=== PATIENT | female | born 1990 | race Caucasian/White ===

== ENCOUNTER → 2019-10-30 11:09 | Outpatient (BNVA) | payer MEDICAID, SELFPAY | PROVIDERS: Family Provider Family Medicine; PCP Family Medicine; Visit Provider Obstetrics & Gynecology | DX: O26.899 Other specified pregnancy related conditions, unspecified trimester (principal); R12 Heartburn | CPT/HCPCS: 80053; 80307; 84315; 85027; 86592; 86762; 86803; 86850; 86900; 87340 ==

== ENCOUNTER → 2019-11-13 09:26 | Outpatient (BNVA) | payer MEDICAID, SELFPAY | PROVIDERS: Family Provider Family Medicine; PCP Family Medicine; Visit Provider Obstetrics & Gynecology | DX: Z34.90 Encounter for supervision of normal pregnancy, unspecified, unspecified trimester (principal) | CPT/HCPCS: 84315; 87491; 87591 ==

== ENCOUNTER → 2020-02-27 14:50 | Outpatient (BNVA) | payer MEDICAID, SELFPAY | PROVIDERS: Family Provider Family Medicine; PCP Family Medicine; Visit Provider Obstetrics & Gynecology | DX: Z34.90 Encounter for supervision of normal pregnancy, unspecified, unspecified trimester (principal) | CPT/HCPCS: 82950; 84315; 85027 ==

== ENCOUNTER → 2020-03-07 08:15 | Outpatient (BNVA) | payer MEDICAID, SELFPAY | PROVIDERS: Family Provider Family Medicine; PCP Family Medicine; Visit Provider Obstetrics & Gynecology | DX: R73.09 Other abnormal glucose (principal) | CPT/HCPCS: 82951; 82952 ==

== ENCOUNTER → 2020-04-18 08:05 | Outpatient (BNVA) | payer MEDICAID, SELFPAY | PROVIDERS: Family Provider Family Medicine; PCP Family Medicine; Visit Provider Obstetrics & Gynecology | DX: O24.419 Gestational diabetes mellitus in pregnancy, unspecified control (principal); O99.013 Anemia complicating pregnancy, third trimester; D64.9 Anemia, unspecified; Z3A.00 Weeks of gestation of pregnancy not specified | CPT/HCPCS: 84315; 85025; 87081 ==

== ENCOUNTER → 2020-04-29 15:11 | Outpatient (BNVA) | payer MEDICAID, SELFPAY | PROVIDERS: Family Provider Family Medicine; PCP Family Medicine; Visit Provider Obstetrics & Gynecology | DX: O24.419 Gestational diabetes mellitus in pregnancy, unspecified control (principal); Z20.822 Contact with and (suspected) exposure to COVID-19 | CPT/HCPCS: 84315; 87635 ==

== ENCOUNTER 2020-05-01 05:18 | Observation (INO) | payer MEDICAID, SELFPAY ==
[2020-05-01] VITALS (19 sets, daily range): BP systolic 103–134; BP diastolic 63–85; PULSE 95–131; RESP 18; TEMP 36.3; O2SAT 97–100; BMI 31.2
--- NOTE | 2020-05-01 05:30 | PC.NURSE ---
BEDSIDE ULTRASOUND. POSITION TRANSVERSE. HEAD ON MATERNAL LEFT. LEGS ON MATERNAL RIGHT. SPINE MATERNAL LOWER ABDOMEN
[2020-05-01] MEDS: lactated ringers 1,000 ML 125 ML IV (06:00)
[2020-05-01 06:04] LABS: Basophils % 0.4 %; Eosinophils # 0.1 10^3/uL (0.0-0.8); Hematocrit 33.8 % (37.0-47.0); Hemoglobin 10.8 g/dL (11.5-15.3); Lymphocytes # 2.5 10^3/uL (0.8-4.8); Mean Corpuscular Hemoglobin 26.5 pg (28.0-34.0); Mean Corpuscular Volume 82.8 fL (81-99); Mean Platelet Volume 11.8 fL (7.4-10.4); Monocytes # 0.7 10^3/uL (0.2-0.9); Monocytes % 8.3 %; Neutrophils # 4.68 10^3/uL (1.8-7.7); Neutrophils % 58.9 %; Nucleated Red Blood Cells % 0 %; Platelet Count 127 10^3/cmm (130-400); Red Blood Count 4.08 10^6/uL (4.1-5.3); White Blood Count 7.9 10^3/uL (4.0-10.0)
--- NOTE | 2020-05-01 06:59 | W.PM.OPSUD ---
Surgery/Procedure H&P Update DATE OF PROCEDURE: May 01, 2020 DATE H&P PERFORMED: 04/29/20 H&P UPDATE INFORMATION: I have reviewed H&P completed within last 30 days, I have examined patient prior to procedure and No changes to prior documentation PREOP DIAGNOSIS: malpresentation PLANNED PROCEDURE: external cephalic version
[2020-05-01] MEDS: terbutaline 1 mg/mL INJ 0.25 MG SUBCUT (07:11)
--- NOTE | 2020-05-01 07:45 | PC.NURSE ---
at bedside to perform Version, this insurance writer and Samuel BLACKWOOD to assist in version. started the version at 727 and ended at 741 with ultrasound at bedside to visualize heart rate through out procedure.
--- NOTE | 2020-05-01 17:32 | PM.ACPR ---
Procedure/Consent Procedure Narrative: OPERATIVE REPORT Date of procedure: 05/01/2020 Date of dictation: 05/01/2020 Preoperative diagnosis: Breech presentation, gestational diabetic Postoperative diagnosis/findings: Breech presentation converted to cephalic Procedure done: External cephalic version none Specimens removed/disposition of specimens:[default value] Surgeon: Dr. Tiffanie Matthews Anesthesia: None Medications: Terbutaline 0.25 subcutaneously x1 Complications: None, about an hour and a half after the procedure the baby moved from being cephalic to oblique with the head in the right lower quadrant. Plan was made for patient to follow-up with [facility] on Tuesday with the discussion that sometimes an oblique lie with convert back to cephalic and if not plan for repeat ECV. PROCEDURE: After informed consent was obtained from patient patient was placed supine on the table and ultrasound was done showing head in the left upper quadrant and breech in the right lower quadrant. Back was in the fundus of the uterus. Good movement and heartbeat were noted. tracing was reactive. Patient had been given terbutaline 10 minutes prior to the procedure and uterus was soft. The head and the breech was grasped and moving in a clockwise fashion the head was brought down towards the pelvis. This was done without too much difficulty. This was done in 2 stages with the head being brought to the left lower quadrant first and held in the position and heart rate was checked. heart rate was noted to be in the 140s on ultrasound and Doppler. Then the remainder of the procedure was completed with the head being brought down to the vertex position. Answer removed from the patient and monitoring was done. It was noted to stay steady in the cephalic presentation. Patient tolerated the procedure well without any difficulty FOLLOW UP: Follow-up on Tuesday for routine visit with [facility] MEDICATION ON DISCHARGE: Continue other home medication DISPOSITION: Home in a stable condition. Emergency room precautions reviewed and patient to contact us and come in for the slightest concern of movement bleeding leaking or contractions. This documentation was created by [employer] deep tissue massage therapist software (known for inherent deep tissue massage therapist error). Every effort was made to assure accuracy of deep tissue massage therapist. Any obvious errors or omissions should be clarified with the author of the document.
== END 2020-05-01 10:31 | disposition home or self-care (01) ==
PROVIDERS: Admitting Provider Obstetrics & Gynecology; Family Provider Family Medicine; PCP Family Medicine; Visit Provider Obstetrics & Gynecology
DX: O32.1XX0 Maternal care for breech presentation, not applicable or unspecified (principal); O24.419 Gestational diabetes mellitus in pregnancy, unspecified control; O99.013 Anemia complicating pregnancy, third trimester; Z3A.37 37 weeks gestation of pregnancy; K42.9 Umbilical hernia without obstruction or gangrene; K21.9 Gastro-esophageal reflux disease without esophagitis
CPT/HCPCS: 36415; 59025; 85025; 96372; G0378; G0379; J3105

== ENCOUNTER → 2020-05-09 11:34 | Outpatient (BNVA) | payer MEDICAID, SELFPAY | PROVIDERS: Family Provider Family Medicine; PCP Family Medicine; Visit Provider Obstetrics & Gynecology | DX: Z34.80 Encounter for supervision of other normal pregnancy, unspecified trimester (principal) | CPT/HCPCS: 87635 ==

== ENCOUNTER 2020-05-13 06:36 | Inpatient (IN) | payer MEDICAID, SELFPAY ==
[2020-05-13] VITALS (72 sets, daily range): BP systolic 99–166; BP diastolic 54–95; PULSE 78–141; RESP 18; TEMP 35.7–36.9; O2SAT 93–100; BMI 38.0
[2020-05-13] MEDS: lactated ringers 1,000 ML 999 ML IV ×2 (07:27→08:47)
[2020-05-13 07:34] LABS: Basophils % 0.4 %; Eosinophils # 0.1 10^3/uL (0.0-0.8); Hematocrit 35.1 % (37.0-47.0); Hemoglobin 11.3 g/dL (11.5-15.3); Lymphocytes # 2.6 10^3/uL (0.8-4.8); Lymphocytes % 34.9 %; Mean Corpuscular HGB Conc 32.2 g/dL (30.0-36.0); Mean Corpuscular Hemoglobin 26.7 pg (28.0-34.0); Mean Platelet Volume 11.7 fL (7.4-10.4); Monocytes # 0.6 10^3/uL (0.2-0.9); Monocytes % 8.1 %; Neutrophils # 4.03 10^3/uL (1.8-7.7); Neutrophils % 55.2 %; Nucleated Red Blood Cells % 0 %; Platelet Count 147 10^3/cmm (130-400); Red Blood Count 4.23 10^6/uL (4.1-5.3); Red Cell Distribution Width 15.9 % (12.1-15.1); White Blood Count 7.3 10^3/uL (4.0-10.0)
[2020-05-13] MEDS: oxytocin 30 UNIT/500 ML BAG IV (08:45)
[2020-05-13 08:55] LABS: Glucose Point of Care 92 mg/dL (70-110)
--- NOTE | 2020-05-13 09:25 | ANES.PREANE2 ---
Pre-Anesthetic Assessment Pre-Anesthetic Assessment: Height/Weight: Height 1.47 m Weight 82.554 kg Temp Pulse BP Pulse Ox 97.9 F 131 H 109/70 97 05/13/20 07:20 05/13/20 09:22 05/13/20 09:22 05/13/20 09:16 Preop Diagnosis: malpresentation Was Beta Marianne taken within 24 hours: N/A Was Clonidine taken within 24 hours: N/A Social: Social History: No alcohol and No tobacco Exam: Pre-Anes Outpt Exam: alert, oriented x 3, clear to auscultation bilaterally and regular rate & rhythm Airway: Submandibular: WNL Cervical ROM: WNL MP: 2 Dentition: Full CV/HEM: CV/HEM: Anemia GI: GI: GERD Metabolic: Metabolic: DM (Gestational) Anesthetic Plan: ASA status: 2 Anesthesia: Regional (specify below) (Labor epidural) Risk of > 500 ml blood loss (7ml/kg in children): No Meds/Allergies Current Medications: Current Medications Generic Name Dose Route Start Last Admin Trade Name Freq PRN Reason Stop Dose Admin Oxytocin 30 unit in 500 ml s @ 1 mls/hr 05/13/20 07:15 05/13/20 08:45 Pitocin IV 2 milliunit/min .Q24H GENESIS 2 mls/hr Administration Protocol 1 MILLIUNIT/MIN Lactated Ringer's 1,000 mls @ 999 m ls/hr 05/13/20 08:41 05/13/20 08:47 Lactated Ringers IV 999 mls/hr .Q1H1M PRN Administration See label comment s PFSH Anesthesia PFSH: Medical History Anxiety Since at least 2011. Has been on and off medication in the past. Currently asymptomatic. Does not see anyone for this. GERD (gastroesophageal reflux disease) Symptoms since at least 2013 and worse with every . Has not had an endoscopy done. Surgical History H/O dilation and curettage x 2 ---2012 after miscarriage. Done by Dr. Milligan at [facility] [place]. ----06/29/2017 for retained placenta after vaginal delivery of a missed . Done by Dr. Matthews at [facility]. Family History Father Hypertension Mother Hypertension Denies family history of Colon cancer Ovarian cancer Diabetes Heart disease Hyperlipidemia Breast cancer Uterine cancer Thyroid condition Stroke Social History Smoking and tobacco status: never smoked Alcohol intake: never Additional social history: - Data Anesthesia CBC & Chem 7: 05/13/20 07:00 Other Labs: Laboratory Results - last 48 hr 05/13/20 05/13/20 05/13/20 07:00 07:00 08:52 WBC 7.3 RBC 4.23 Hgb 11.3 L Hct 35.1 L MCV 83.0 MCH 26.7 L MCHC 32.2 RDW 15.9 H Plt Count 147 MPV 11.7 H Neut % (Auto) 55.2 Lymph % (Auto) 34.9 [place] % (Auto) 8.1 Eos % (Auto) 1.0 Baso % (Auto) 0.4 Neut # (Auto) 4.03 Lymph # (Auto) 2.6 [place] # (Auto) 0.6 Eos # (Auto) 0.1 Baso # (Auto) 0.0 Nucleated RBC % (auto) 0 Nucleated RBCs # 0.0 POC Glucose 92 Blood Type A Positive Rho(D) Type Positive / 4+ Antibody Screen Negative Cardiac Studies: No Data to Display
--- NOTE | 2020-05-13 09:26 | ANES.PROC ---
Anesthesia Procedures Procedure/Date: 05/13/20 Epidural: Time Out Performed: Yes Consents Signed: Procedure Consent Consent: requested by attending/covering physician, from patient, risks and benefits reviewed and patient agrees to proceed Lumbar Level: L3-L4 Epidural position: sitting Epidural procedure: sterile prep of area, 1% lidocaine to numb the area, 18 g needle, neg for paresthesia, test dose given, 1.5% xylocaine 1:200k epi, placed PCEA, no systemic response, sterile dressing applied and 0.2% Ropiavacaine @ mls/hr (13) Additional Comments: DENNISE at 6 cm, cath at 11cm.
[2020-05-13] MEDS: ondansetron 2 mg/ML SDV 2 mL 4 MG IVP (09:55)
[2020-05-13 11:33] LABS: Glucose Point of Care 90 mg/dL (70-110)
[2020-05-13] MEDS: dextrose 5%-lactated ringers 1,000 ML 125 ML IV (11:45)
[2020-05-13 13:34] LABS: Glucose Point of Care 93 mg/dL (70-110)
--- NOTE | 2020-05-13 15:11 | PM.DELIVERY ---
Delivery Note: Date of delivery: May 13, 2020 - PRE-DELIVERY DIAGNOSIS: 29-year-old 7 para 4-0-2-4 at 39 weeks and 3 days Possible version and induction Gestational diabetic-diet controlled GBS negative GERD/gastritis Umbilical hernia POST-DELIVERY DIAGNOSIS: Vaginal delivery on 05/13/2020 GERD/gastritis Umbilical hernia PROCEDURE: Vaginal delivery on 05/13/2020 ANESTHESIA: Epidural anesthesia DELIVERING PHYSICIAN: Tiffanie Matthews FACOG PRE-DELIVERY COURSE: Ms. Hunt is a 29-year-old 7 para 4-0-2-4 at 39 weeks and 3 days who presented to labor and delivery for scheduled procedure. Her baby was noted to be breech and had an external cephalic version that was successful at 37 weeks however baby reported to being breech at 38 weeks. Given this the plan was to be to attempt another version if baby was still breech at 39 weeks and induce if the version was successful however if unsuccessful the plan was to do a . When she presented on 05/13/2020 bedside ultrasound showed that baby was cephalic and she was noted to be rober irregularly and cervix was 4 cm 70% and -2 station. She was admitted for planned induction and started on Pitocin as her contractions spaced out. She was titrated to maximum of 14 mIU. She desired an epidural and this was placed. Artificial rupture of membranes was performed at 11 AM with clear fluid. Head was noted to be well applied. At that time she was 5 cm 70% and -2 station. She progressed and was fully dilated at 2:04 PM at +1 station and was set up in lithotomy position ready to push. tracing was overall category 1 with occasional variables and early decelerations. Fingerstick monitoring had been done throughout the labor and was at goal. DELIVERY NOTE: She was set up in lithotomy position and was pushing effectively. She was noted to be +3 station and continued pushing well. The head delivered in BRIAN position,no nuchal cord was present. The shoulders and rest of the body followed with her next push. The baby's mouth and nose were suctioned and the baby was placed on the mother's belly. Once cord pulsations stopped the cord was clamped and cut. The placenta delivered spontaneously intact with membranes and was discarded. The fundus was noted to be firm and well contracted. The vagina and cervix were inspected and no cervical or sulcal lacerations were noted. There was a first-degree vaginal laceration likely from an old tear and this was repaired for reapproximation. Good hemostasis and reapproximation was obtained. Baby boy, exact plan born at 2:41 PM on 05/13/2020 with 9/10, weighing 8 pounds 2 ounces, 3680 g, 21-1/4 inches long long. Placenta was delivered spontaneously intact with membranes at 2:53 PM. Cotyledons were intact , centrally inserted umbilical cord with 3 vessels noted. Estimated blood loss 250 mL. Complications-none, both baby and mother were left to recover in a stable condition This documentation was created by [employer] emergency room physician assistant software (known for inherent emergency room physician assistant error). Every effort was made to assure accuracy of emergency room physician assistant. Any obvious errors or omissions should be clarified with the author of the document. Coding Level of Care Code Acute Drug And Alcohol Counsellor for Jessica Fwd History History History 7 Term 5 Miscarriages/Ectopic 2 0 Living Children 5 Other History: 7 Para 5025, x 5 SABX 2 1-----> 2008, full-term vaginal delivery at 39 weeks, baby boy [Leelee], 6 lbs. 11 oz., induction at 40 weeks, [place] [facility] [place] 2---> 2011, spontaneous miscarriage at 6-7 weeks--- D&C [place] Milligan [place] [facility] [place] 3----> 2012, baby girl([facility] full-term vaginal delivery at 39 weeks, weighing 7 lbs. 14 oz., Dr. Swan. No complications. 4---> 11/06/2015, baby girl (Rober) , full-term vaginal delivery at 40 weeks and 2 days-induction of labor, weighing 7 pounds 1-1/2 ounces, first degree perineal tear, [place]. [place] [facility] [place] No complications prior to delivery. 5---> 07/2017, missed at 13 weeks, patient's labor was induced with Cytotec and she delivered on 06/29/2017, D&C was done for retained placenta. This was performed by Dr. Matthews. 6--> 09/26/2018, induction of labor at 38 weeks and [address] [place] [facility] [place] Vaginal delivery with a first-degree vaginal tear, baby girl, ([place]) weighing 6 lbs. 3 oz. 7---> 05/13/2020, induction of labor at 39 weeks and 3 days for GDM-diet controlled. [place]ag[place] [facility] [place] first-degree vaginal tear, baby boy([place]) weighing 8 pounds 2 ounces.
[2020-05-13] MEDS: benzocaine-menthol 78 gm Canister 1 SPRAY TOPICAL (18:12)
[2020-05-13] MEDS: lanolin oint 7 gm 1 APPLIC TOPICAL (18:24)
[2020-05-13] MEDS: docusate sodium 100 mg Capsule PO (18:24)
[2020-05-13] MEDS: ibuprofen 200 mg Tablet PO (20:03)
[2020-05-14] VITALS (10 sets, daily range): BP systolic 117–144; BP diastolic 76–90; PULSE 75–82; RESP 18; TEMP 35.9–36.6; O2SAT 96
[2020-05-14] MEDS: HYDROcodone-acetaminophen 5-325 mg Tablet PO (01:52)
[2020-05-14 03:23] LABS: Hematocrit 29.9 % (37.0-47.0); Hemoglobin 9.7 g/dL (11.5-15.3); Mean Corpuscular HGB Conc 32.4 g/dL (30.0-36.0); Mean Corpuscular Volume 83.3 fL (81-99); Platelet Count 130 10^3/cmm (130-400); Red Blood Count 3.59 10^6/uL (4.1-5.3); Red Cell Distribution Width 15.6 % (12.1-15.1); White Blood Count 9.3 10^3/uL (4.0-10.0)
[2020-05-14] MEDS: ibuprofen 200 mg Tablet PO ×2 (06:32→12:02)
--- NOTE | 2020-05-14 07:15 | P.DS_ITS ---
Discharge Providers Date of Admission: 05/13/20 06:36 Date of Discharge: May 14, 2020 Attending Provider at Admission: Tiffanie Meracdo MD Attending Provider at Discharge: Tiffanie Mercado MD PRE-DELIVERY DIAGNOSIS: 29-year-old 7 para 4-0-2-4 at 39 weeks and 3 days Possible version and induction for breech presentation Gestational diabetic-diet controlled GBS negative GERD/gastritis Umbilical hernia POST-DELIVERY DIAGNOSIS: Vaginal delivery on 05/13/2020 GERD/gastritis Umbilical hernia PROCEDURE: Vaginal delivery on 05/13/2020 ANESTHESIA: Epidural anesthesia DELIVERING PHYSICIAN: Tiffanie Hewitt FACOG PRE-DELIVERY COURSE: Ms. Hunt is a 29-year-old 7 para 4-0-2-4 at 39 weeks and 3 days who presented to labor and delivery for scheduled procedure. Her baby was noted to be breech and had an external cephalic version that was successful at 37 weeks however baby reported to being breech at 38 weeks. Given this the plan was to be to attempt another version if baby was still breech at 39 weeks and induce if the version was successful however if unsuccessful the plan was to do a C- section. When she presented on 05/13/2020 bedside ultrasound showed that baby was cephalic and she was noted to be rober irregularly and cervix was 4 cm 70% and -2 station. She was admitted for planned induction and started on Pitocin as her contractions spaced out. She was titrated to maximum of 14 mIU. She desired an epidural and this was placed. Artificial rupture of membranes was performed at 11 AM with clear fluid. Head was noted to be well applied. At that time she was 5 cm 70% and -2 station. She progressed and was fully dilated at 2:04 PM at +1 station and was set up in lithotomy position ready to push. tracing was overall category 1 with occasional variables and early decelerations. Fingerstick monitoring had been done throughout the labor and was at goal. DELIVERY NOTE: She was set up in lithotomy position and was pushing effectively. She was noted to be +3 station and continued pushing well. The head delivered in BRIAN position,no nuchal cord was present. The shoulders and rest of the body followed with her next push. The baby's mouth and nose were suctioned and the baby was placed on the mother's belly. Once cord pulsations stopped the cord was clamped and cut. The placenta delivered spontaneously intact with membranes and was discarded. The fundus was noted to be firm and well contracted. The vagina and cervix were inspected and no cervical or sulcal lacerations were noted. There was a first-degree vaginal laceration likely from an old tear and this was repaired for reapproximation. Good hemostasis and reapproximation was obtained. Baby boy, Nicolein born at 2:41 PM on 05/13/2020 with 9/10, weighing 8 pounds 2 ounces, 3680 g, 21-1/4 inches long long. Placenta was delivered spontaneously intact with membranes at 2:53 PM. Cotyledons were intact , centrally inserted umbilical cord with 3 vessels noted. Estimated blood loss 250 mL. Complications-none, both baby and mother were left to recover in a stable condition HOSPITAL COURSE: She underwent an uncomplicated vaginal delivery on 05/13/2020. She did well on day 0 and was ambulating well, tolerating regular diet, voiding freely, passing flatus. She was breast-feeding without difficulty and bonding we ll with her son. Circumcision was performed on him on day of life 1 per her request after obtaining informed consent. Pain was well-controlled with by mouth pain medication. She denied nausea, vomiting, fever, chills, shortness of breath, leg pain. She had moderate vaginal bleeding. On day # 1 she continued to do well with stable vital signs and stable hemoglobin at 9.7. She was discharged home on day 1 in a stable condition, as she desired early discharge. Warning signs for endometritis, mastitis, DVT/PE were reviewed with her. Post delivery activity restrictions were also reviewed with her at all her questions were answered to her satisfaction. Vasectomy is a plan for contraception. She will follow up with Dr. Huitron to plan for surgical repair of umbilical hernia and possible cholecystectomy. When she comes in for her 6-week visit she will need a 2-hour fasting GTT and she is aware of this. EXAM AT DISCHARGE: Gen.: No acute distress Heart: S1-S2 heard, regular rate and rhythm Lungs: Clear to auscultation bilaterally Abdomen: Soft, fundus firm below umbilicus, Legs: No calf tenderness, +1 bilateral pitting pedal edema. CONDITION AT DISCHARGE: Stable This documentation was created by [employer] cma or lpn software (known for inherent cma or lpn error). Every effort was made to assure accuracy of tr anscription. Any obvious errors or omissions should be clarified with the author of the document. Primary Care Provider: Delano Swan MD Reason for Visit Reason for Visit: External Version, Possible IOL, Possible C/S Physical Exam Urinary Catheter Management^: Vega: Cath Placed During This Visit: yes, but has since been removed by the nurse Reason for Continuing Indwelling Catheter: Decision to DC Catheter Urinary Catheter Date of Insertion: 05/13/20 Urinary Catheter Time of Insertion: 09:30 Date Urinary Catheter Removed: 05/13/20 Time Urinary Catheter Discontinued: 14:15 Discharge Data Data Completed and Pending: Labs from last 24 hours 05/14/20 05/13/20 05/13/20 03:00 13:24 11:26 WBC 9.3 RBC 3.59 L Hgb 9.7 L Hct 29.9 L MCV 83.3 MCH 27.0 L MCHC 32.4 RDW 15.6 H Plt Count 130 MPV 12.0 H Neut % (Auto) Lymph % (Auto) [place] % (Auto) Eos % (Auto) Baso % (Auto) Neut # (Auto) Lymph # (Auto) [place] # (Auto) Eos # (Auto) Baso # (Auto) Nucleated RBC % (a uto) Nucleated RBCs # POC Glucose 93 90 Blood Type Rho(D) Type Antibody Screen 05/13/20 05/13/20 05/13/20 08:52 07:00 07:00 WBC 7.3 RBC 4.23 Hgb 11.3 L Hct 35.1 L MCV 83.0 MCH 26.7 L MCHC 32.2 RDW 15.9 H Plt Count 147 MPV 11.7 H Neut % (Auto) 55.2 Lymph % (Auto) 34.9 [place] % (Auto) 8.1 Eos % (Auto) 1.0 Baso % (Auto) 0.4 Neut # (Auto) 4.03 Lymph # (Auto) 2.6 [place] # (Auto) 0.6 Eos # (Auto) 0.1 Baso # (Auto) 0.0 Nucleated RBC % (a uto) 0 Nucleated RBCs # 0.0 POC Glucose 92 Blood Type A Positive Rho(D) Type Positive / 4+ Antibody Screen Negative Vitals: Last Vital Signs Temp 97.7 F 05/14/20 06:29 Pulse 81 05/14/20 06:30 Resp 18 05/13/20 16:22 BP 117/80 05/14/20 06:30 Pulse Ox 96 05/14/20 06:29 Discharge Plan Discharge Patient Disposition: Home Condition: Stable Prescriptions: New ibuprofen 200 mg Tablet 200 mg PO Q6H PRN (Reason: Moderate Pain) 30 Days RF: 0 docusate sodium 100 mg Capsule 100 mg PO BID PRN (Reason: constipation) Qty: 30 RF: 0 Continued (DME) blood-glucose meter [Accu-Chek Guide Glucose Meter] Misc See Rx Instructions .ROUTE .MEDSUPPLY Qty: 1 RF: 0 alum-mag hydroxide-simeth [Maalox Advanced] 200-200-20 mg/5 mL suspension 10 ml PO Q6H PRNRF: 0 calcium carbonate [Tums E-X] 300 mg (750 mg) tablet,chewable 300 mg PO BID PRNRF: 0 prenat.vits,meenakshi,lpv-pqkw-tbduk Tablet 1 tab PO DAILY RF: 0 acetaminophen [Tylenol] 325 mg capsule 325 mg PO QID PRNRF: 0 (DME) Accu-Chek Guide test strips Strip See Rx Instructions .ROUTE .MEDSUPPLY Qty: 100 RF: 3 (DME) lancets [Accu-Chek Multiclix Lancet] Misc See Rx Instructions .ROUTE .MEDSUPPLY Qty: 100 RF: 3 Discontinued ferrous sulfate 325 mg (65 mg iron) tablet,delayed release (DR/EC) 325 mg PO BID RF: 0 Discharge Orders: Discharge Order (Routine); Ordered 05/14/20 Ordered By: Tiffanie Mercado Referrals: Tiffanie Mercado MD [Physician] - (YOUR 6 WEEK APPOINTMENT HAS BEEN SCHEDULED FOR 06/24/2020 AT 8:[address] HEWITT. Please come in fasting for 2-hour GTT) Patient Instructions: Breast Care for the Breast Feeding Mother (DC), Vaginal Delivery (DC), Pre-eclampsia and Eclampsia (DC), Bleeding (DC), OB Discharge Report, OB Food/Drug Interaction Guide, OB Home Care, OB Proud Parent Packet, OB Vaginal Deliveries, Abnormal Bleeding Activity Restrictions/Additional Instructions: Pelvic rest for 6 weeks, no heavy lifting for 6 weeks Discharge Attestations Time Spent in Discharge Care*: greater than 30 min Quality Metrics Clinical Quality Measures During this hospital stay, did patient experience: None Coding Level of Care Code Acute Grahamg DELILAH MICHELLE note
[2020-05-14] MEDS: prenatal vitamin Capsule 1 CAP PO (08:39)
[2020-05-14] MEDS: docusate sodium 100 mg Capsule PO (08:40)
== END 2020-05-14 15:30 | disposition home or self-care (01) | DRG 806 ==
PROVIDERS: Admitting Provider Obstetrics & Gynecology; Family Provider Family Medicine; PCP Family Medicine; Visit Provider Obstetrics & Gynecology
DX: O24.420 Gestational diabetes mellitus in childbirth, diet controlled (principal); O71.4 Obstetric high vaginal laceration alone; Z37.0 Single live birth; Z3A.39 39 weeks gestation of pregnancy; O76 Abnormality in fetal heart rate and rhythm complicating labor and delivery; O99.62 Diseases of the digestive system complicating childbirth; K21.9 Gastro-esophageal reflux disease without esophagitis; K42.9 Umbilical hernia without obstruction or gangrene
CPT/HCPCS: 36415; 36416; 51702; 59025; 59409; 82962; 85025; 85027; 86850; 86900; J2405; J2795

== ENCOUNTER → 2020-06-24 08:19 | Outpatient (BNVA) | payer MEDICAID, SELFPAY | PROVIDERS: Family Provider Family Medicine; PCP Family Medicine; Visit Provider Obstetrics & Gynecology | DX: O24.419 Gestational diabetes mellitus in pregnancy, unspecified control (principal); Z12.4 Encounter for screening for malignant neoplasm of cervix | CPT/HCPCS: 82951; 88175 ==

== ENCOUNTER → 2020-12-29 16:02 | Outpatient (BNVA) | payer MEDICAID, SELFPAY | PROVIDERS: Family Provider Family Medicine; PCP Family Medicine; Visit Provider Nurse Practitioner Family | DX: Z20.822 Contact with and (suspected) exposure to COVID-19 (principal) | CPT/HCPCS: 87635 ==

== ENCOUNTER 2021-01-02 12:04 | Outpatient (CLI) | payer MEDICAID, SELFPAY ==
[2021-01-02 12:13] VITALS: BMI 37.0
[2021-01-02 12:14] VITALS: BP 142/105; PULSE 112; RESP 20; TEMP 37.2; O2SAT 98
[2021-01-02 13:10] VITALS: BP 139/97; PULSE 100; RESP 18; TEMP 36.6; O2SAT 98
[2021-01-02 14:15] VITALS: BP 129/90; PULSE 94; RESP 18; TEMP 37; O2SAT 98
[2021-01-02 14:26] VITALS: BP 129/90; PULSE 94; RESP 18; TEMP 37; O2SAT 98
== END 2021-01-02 12:05 | disposition home or self-care (01) ==
LOC: OPS 12:08
PROVIDERS: PCP Family Medicine; Visit Provider Nurse Practitioner Family
DX: U07.1 COVID-19 (principal)
CPT/HCPCS: 96365

== ENCOUNTER 2021-11-11 11:05 | Emergency (ER) | payer MEDICAID, SELFPAY ==
--- NOTE | 2021-11-11 11:15 | CT_ITS ---
WS: [id number] CT NECK WITH CONTRAST HISTORY: possible neck infection, right-sided neck swelling and pain. TECHNIQUE: Contiguous 5 mm axial images are performed through the neck with intravenous contrast. Sag ittal and coronal reformats are also submitted. All CT scans at [facility] use at least one o f these dose optimization techniques: automated exposure control; mA and/or kV adjustment per patient size (includes targeted exams where dose is matched to clinical indication); or iterative reconstruc tion. CONTRAST: CONTRAST: Omnipaque 350; 80 mL IV. DLP: 241.80 mGy.cm COMPARISON: None available. There is significant fullness in the soft tissues beginning in the posterior nasopharynx extending th rough the lingual and palatine tonsils and oropharyngeal mucosa. There is a focal abscess in the RIGH T palatine tonsil extending to the lingual tonsil measuring 2.1 x 1.5 cm. There is an additional 5 mm low-attenuation collection along the surface of the LEFT palatine tonsil which may be fluid in a cry pt or developing surface abscess. There is mild narrowing of the oropharyngeal airway but no high-gra de obstruction at this time. The epiglottis is normal. Enlarged bilateral level 2 lymph nodes. Lymph nodes are hypervascular and rounded measuring up to 12 mm in diameter. No osseous abnormalities. Visualized portions of the skull base demonstrate no abnormalities. Orbits and globes are within norm al limits. No soft tissue masses. Mild mucoperiosteal thickening in the maxillary sinuses. Lung apices are clear. CT/CT neck w con* [id number] IMPRESSION: 1. RIGHT peritonsillar abscess measuring 2.1 x 1.5 cm. 2. Additional inflammatory changes beginning in the nasopharynx through the or opharynx with enlargement of the palatine and lingual tonsils. 3. Bilateral cervical chain lymphadenopathy is reactive. Notified Fritz Nam MD at 11/11/2021 12:37 PM.
[2021-11-11 11:29] VITALS: BP 156/109; PULSE 121; RESP 18; TEMP 36.8; O2SAT 98; BMI 37.0
--- NOTE | 2021-11-11 11:45 | W.ED.GENADLT ---
HPI - General Adult General: Chief complaint: Dental/Oral Stated complaint: Sent from , strep throat + Time Seen by Provider: 11/11/21 11:15 History of Present Illness: Patient is a 31-year-old female presents emergency room with 1 week of sore throat. Patient was seen earlier today at urgent care by Dr. Farris was told to come to the emergency room given sore throat and fever. Yesterday she has subjective fever and has had been having significant throat pain. Patient tells me that she has had decreased p.o. intake due to throat pain. Patient denies any drooling, hoarseness of voice, trismus, difficulty swallowing. Patient does report pain with swallowing. Onset:1 week ago Duration:1 week Location:home Severity:mild/moderate Associated symptoms: Deny chest pain, dyspnea, nausea, rash, palpitations or vomiting Review of Systems Const: Denies: fever(s) or chills Eyes: Denies: change in vision ENMT: Reports: other (+neck pain/throat pain); Denies: mouth pain Card: Denies: chest pain or palpitations Resp: Denies: dyspnea or non-productive cough GI: Denies: abdominal pain, nausea, vomiting or diarrhea : Denies: dysuria Musc: Denies: extremity pain Skin/Breast: Denies: rash or new lesions Neuro: Denies: weakness in extremities Psych: Reports: other (Normal mood) Gabriel/Lymph: Denies: easy bruising PFS ED PFSH: Medical History Anxiety Since at least 2011. Has been on and off medication in the past. Currently asymptomatic. Does not see anyone for this. GERD (gastroesophageal reflux disease) Symptoms since at least 2013 and worse with every . Has not had an endoscopy done. Surgical History H/O dilation and curettage x 2 ---2011 after miscarriage. Done by Dr. Milligan at [facility] [place]. ----06/29/2017 for retained placenta after vaginal delivery of a missed . Done by Dr. Matthews at [facility] [place]. Family History Father Hypertension Mother Hypertension Denies family history of Colon cancer Ovarian cancer Diabetes Heart disease Hyperlipidemia Breast cancer Uterine cancer Thyroid condition Stroke Social History Smoking and tobacco status: never smoked Alcohol intake: never Additional social history: - Physical Exam Const: COMMON NORMALS: alert HENMT: COMMON NORMALS: atraumatic HEAD & SCALP: atraumatic MOUTH: moist mucous membranes not abnormal OTHER: + No uvula deviation, posterior oropharyngeal erythema without exudates, no tonsillar swelling Eye: COMMON NORMALS: EOMs intact bilaterally and conjunctivae normal CONJUNCTIVA: Yes conjunctivae normal Neck/C-Spine: COMMON NORMALS: full ROM and supple OTHER: +mild b/l anterior neck tenderness to palpation Resp: COMMON NORMALS: normal respiratory effort and clear to auscultation bilaterally AUSCULTATION: clear to auscultation bilaterally Cardio: COMMON NORMALS: regular rate RATE: regular rate GI: COMMON NORMALS: Soft to palpation and non-tender PALPATION: Yes Soft to palpation OTHER: No focal TTP. NO guarding rebound, guarding, rigidity. No CVA tenderness to percussion. Neg Jacobo/Neg McBurney's point tenderness, no suprabupic tenderness to palpation. Extremity: COMMON NORMALS: full ROM Neuro: SENSORIUM/ORIENTATION: Yes alert MOTOR EXAM: No Abnormal motor strength present and Other motor observations present (no focal motor deficits) Psych: COMMON NORMALS: speech normal SPEECH: Yes normal speech MOOD & AFFECT: Yes euthymic mood Course Vital Signs: Vital signs: Vital Signs Temperature 98.2 F 11/11/21 11:29 Pulse Rate 113 H 11/11/21 14:15 Respiratory Rate 17 11/11/21 14:15 Blood Pressure 150/113 11/11/21 14:15 Pulse Oximetry 98 11/11/21 14:15 Oxygen Delivery Me thod 11/11/21 14:15 MDM - General Adult Medical Decision Making Patient is a 31-year-old female presents emergency room with 1 week of sore throat. Patient was seen earlier today at urgent care by Dr. Farris was told to come to the emergency room given sore throat and fever. Exam, patient has no posterior oropharyngeal exudates or uvular deviation. Patient is noted to have posterior oropharyngeal erythema. Patient has mild bilateral anterior neck tenderness palpation without any palpable fluctuance. CT showed a 2.1 x 1.5 cm right peritonsillar abscess. We do not have any ENT specialist on-call today. Given the location and the size of the lesion, this will need ENT expertise for incision and drainage. She received Unasyn in the emergency room. Case was discussed with Dr. Leach who agreed with the transfer to [facility] for peritonsillar abscess. Patient tells me at this time that she would like to go over to [facility] by private vehicle. Patient is hemodynamically stable, with no oral airway compromise. [facility] aware the patient will be transported by private vehicle. Disposition: Transfer to outside hospital Lab Data : 11/11/21 12:01 11/11/21 12:[address] 11/11/21 11:15 IMPRESSION: 1. RIGHT peritonsillar abscess measuring 2.1 x 1.5 cm. 2. Additional inflammatory changes beginning in the nasopharynx through the oropharynx with enlargement of the palatine and lingual tonsils. 3. Bilateral cervical chain lymphadenopathy is reactive. Notified Fritz Nam MD at 11/11/2021 12:37 PM. Laboratory Results WBC 15.9 10^3/uL (4.0-10.0) H 11/11/21 12:01 RBC 5.20 10^6/uL (4.1-5.3) 11/11/21 12:01 Hgb 12.7 g/dL (11.5-15.3) 11/11/21 12:01 Hct 41.3 % (37.0-47.0) 11/11/21 12:01 MCV 79.4 fl (81-99) L 11/11/21 12:01 MCH 24.4 pg (28.0-34.0) L 11/11/21 12:01 MCHC 30.8 g/dL (30.0-36.0) 11/11/21 12:01 RDW 15.6 % (12.1-15.1) H 11/11/21 12:01 Plt Count 383 10^3/cmm (130-400) 11/11/21 12:01 MPV 11.0 fL (7.4-10.4) H 11/11/21 12:01 Neut % (Auto) 73.7 % 11/11/21 12:01 Lymph % (Auto) 18.8 % 11/11/21 12:01 [place] % (Auto) 6.0 % 11/11/21 12:01 Eos % (Auto) 0.8 % 11/11/21 12:01 Baso % (Auto) 0.3 % 11/11/21 12:01 Neut # (Auto) 11.74 10^3/uL (1.8-7.7) H 11/11/21 12:01 Lymph # (Auto) 3.0 10^3/uL (0.8-4.8) 11/11/21 12:01 [place] # (Auto) 1.0 10^3/uL (0.2-0.9) H 11/11/21 12:01 Eos # (Auto) 0.1 10^3/uL (0.0-0.8) 11/11/21 12:01 Baso # (Auto) 0.0 10^3/uL (0.0-0.1) 11/11/21 12:01 Nucleated RBC % (auto) 0 % 11/11/21 12:01 Nucleated RBCs # 0.0 /100WBC 11/11/21 12:01 Sodium 136 mmol/L (136-145) 11/11/21 12:01 Potassium 3.5 mmol/L (3.5-5.1) 11/11/21 12:01 Chloride 98 mmol/L (98-107) 11/11/21 12:01 Carbon Dioxide 24 mmol/L (22-29) 11/11/21 12:01 Anion Gap 17.5 (5-19) 11/11/21 12:01 BUN 8 mg/dL (6-20) 11/11/21 12:01 Creatinine 0.6 mg/dL (0.5-0.9) 11/11/21 12:01 GFR Calculation 118.2 mL/min (90-130) 11/11/21 12:01 Glucose 105 mg/dL (65-115) 11/11/21 12:01 Calculated Osmolality 281 mOsm/kg (285-295) L 11/11/21 12:01 Calcium 9.1 mg/dL (8.5-10.5) 11/11/21 12:01 Imaging Data Other Imaging: Radiologist's impression: [address] [address] [address] Scan Report Signed Patient: Terri Hunt Unit #: [id number] : 1990 Age/Sex: 31 / F ADM Date: 11/11/21 Loc: ER Room/Bed: Attending Dr: Ordering Provider/Ordering MD: Fritz Nam MD Date of Service: 11/11/21 Procedure(s): CT neck w con* [id number] Accession Number(s): [id number] Report Number: [id number] WS: [id number] CT NECK WITH CONTRAST HISTORY: possible neck infection, right-sided neck swelling and pain. TECHNIQUE: Contiguous 5 mm axial images are performed through the neck with intravenous contrast. Sagittal and coronal reformats are also submitted.? All CT scans at [facility] use at least one of these dose optimization techniques: automated exposure control; mA and/or kV adjustment per patient size (includes targeted exams where dose is matched to clinical indication); or iterative reconstruction. CONTRAST: CONTRAST: Omnipaque 350; 80 mL IV. DLP: 241.80 mGy.cm COMPARISON: None available. There is significant fullness in the soft tissues beginning in the posterior nasopharynx extending through the lingual and palatine tonsils and oropharyngeal mucosa. There is a focal abscess in the RIGHT palatine tonsil extending to the lingual tonsil measuring 2.1 x 1.5 cm. There is an additional 5 mm low-attenuation collection along the surface of the LEFT palatine tonsil which may be fluid in a crypt or developing surface abscess. There is mild narrowing of the oropharyngeal airway but no high-grade obstruction at this time. The epiglottis is normal. Enlarged bilateral level 2 lymph nodes. Lymph nodes are hypervascular and rounded measuring up to 12 mm in diameter. No osseous abnormalities. Visualized portions of the skull base demonstrate no abnormalities. Orbits and globes are within normal limits. No soft tissue masses. Mild mucoperiosteal thickening in the maxillary sinuses. Lung apices are clear. CT/CT neck w con* [id number] IMPRESSION: ? 1.? RIGHT peritonsillar abscess measuring 2.1 x 1.5 cm. 2.? Additional inflammatory changes beginning in the nasopharynx through the oropharynx with enlargement of the palatine and lingual tonsils. 3.? Bilateral cervical chain lymphadenopathy is reactive. ? Notified Fritz Nam MD at 11/11/2021 12:37 PM. ? Dictated By: Kena Ballesteros DO Signed By: Kena Ballesteros DO Signed Date/Time: 11/11/21 1239 DD/ 1229 Discharge Plan Discharge Patient Disposition: Home Clinical Impression: Abscess, peritonsillar, Throat pain Condition: Stable Prescriptions: No Action acetaminophen [Tylenol] 325 mg capsule 325 mg PO QID PRN (Reason: Pain) cyanocobalamin (vitamin B-12) [Vitamin B-12] 1,000 mcg Tablet 1,000 mcg PO DAILY iron 325 mg (65 mg iron) Tablet 325 mg PO DAILY Advil 200 mg Tablet 200 mg PO Q6H PRN (Reason: Pain) Discharge Orders: Discharge ED (Routine); Ordered 11/11/21 Ordered By: Fritz Nam Transfer Out of Facility (Order); Ordered 11/11/21 Ordered By: Fritz Nam Discharge Diet: Advance as tolerated Discharge Activity: Increase activity as tolerated Patient Instructions: Opioid Safety, Pain Management Activity Restrictions/Additional Instructions: Please go to [facility] emergency room for peritonsillar abscess I&D. Coding Level of Care Code ED Shared Services Representative for Chg Fwd Exam Comprehensive
[2021-11-11] MEDS: iohexol 350 mg/mL 100 mL Btl IV (12:09)
[2021-11-11 12:17] LABS: Basophils % 0.3 %; Eosinophils # 0.1 10^3/uL (0.0-0.8); Eosinophils % 0.8 %; Hematocrit 41.3 % (37.0-47.0); Hemoglobin 12.7 g/dL (11.5-15.3); Lymphocytes % 18.8 %; Mean Corpuscular HGB Conc 30.8 g/dL (30.0-36.0); Mean Corpuscular Hemoglobin 24.4 pg (28.0-34.0); Mean Corpuscular Volume 79.4 fl (81-99); Neutrophils # 11.74 10^3/uL (1.8-7.7); Neutrophils % 73.7 %; Nucleated Red Blood Cells % 0 %; Platelet Count 383 10^3/cmm (130-400); Red Cell Distribution Width 15.6 % (12.1-15.1); White Blood Count 15.9 10^3/uL (4.0-10.0)
[2021-11-11 12:33] LABS: Anion Gap 17.5 (5-19); Blood Urea Nitrogen 8 mg/dL (6-20); Calcium 9.1 mg/dL (8.5-10.5); Carbon Dioxide 24 mmol/L (22-29); Chloride 98 mmol/L (98-107); Glomerular Filtration Rate 118.2 mL/min (90-130); Glucose 105 mg/dL (65-115); Osmolality Calculated 281 mOsm/kg (285-295); Potassium 3.5 mmol/L (3.5-5.1); Sodium 136 mmol/L (136-145)
[2021-11-11] MEDS: ampicillin-sulbactam 3 GM in sodium chloride 0.9% (plus) 50 ML IV (13:36)
[2021-11-11 14:15] VITALS: BP 150/113; PULSE 113; RESP 17; O2SAT 98
== END 2021-11-11 15:17 | disposition home or self-care (01) ==
PROVIDERS: Emergency Provider Emergency Medicine
DX: J36 Peritonsillar abscess (principal)
CPT/HCPCS: 36415; 70491; 80048; 85025; 87880; 96365; 99285; J0295; Q9967

== ENCOUNTER 2022-03-16 09:42 | Emergency (ER) | payer MEDICAID, SELFPAY ==
[2022-03-16 10:00] VITALS: BP 148/97; PULSE 101; RESP 18; TEMP 36.6; O2SAT 97; BMI 38.5
--- NOTE | 2022-03-16 11:10 | W.ED.URI ---
HPI - URI/Sore Throat General: Chief Complaint: General Medical Stated Complaint: rash on face, sick Time Seen by Provider: 03/16/22 09:43 [facility] ED PFS: Medical History Anxiety Since at least 2011. Has been on and off medication in the past. Currently asymptomatic. Does not see anyone for this. GERD (gastroesophageal reflux disease) Symptoms since at least 2013 and worse with every . Has not had an endoscopy done. Surgical History H/O dilation and curettage x 2 ---2011 after [place]riage[place] [facility] [place] for retained placenta after vaginal delivery of a missed . [place] Matthews [place] [facility] [place] Family History Father Hypertension Mother Hypertension Denies family history of Colon cancer Ovarian cancer Diabetes Heart disease Hyperlipidemia Breast cancer Uterine cancer Thyroid condition Stroke Social History Smoking and tobacco status: never smoked Alcohol intake: never Additional social history: - Course Vital Signs: Vital signs: Vital Signs Temperature 97.8 F 03/16/22 10:00 Pulse Rate 101 H 03/16/22 10:00 Respiratory Rate 18 03/16/22 10:00 Blood Pressure 148/97 03/16/22 10:00 Pulse Oximetry 97 03/16/22 10:00 Oxygen Delivery Ga thod 03/16/22 10:00 Discharge Plan Discharge Condition: Stable Prescriptions: No Action acetaminophen [Tylenol] 325 mg capsule 325 mg PO QID PRN (Reason: Pain) amoxicillin-pot clavulanate 875-125 mg tablet 1 tab PO Q12H 10 Days Qty: 20 0RF mupirocin 2 % ointment 1 applic topical BID Qty: 22 1RF Rx Instructions: in both nares for 3 weeks ibuprofen 600 mg tablet 600 mg PO Q8H PRN (Reason: pain) Qty: 30 0RF amoxicillin 875 mg tablet 875 mg PO BID 10 Days Qty: 20 0RF cyanocobalamin (vitamin B-12) [Vitamin B-12] 1,000 mcg Tablet 1,000 mcg PO DAILY iron 325 mg (65 mg iron) Tablet 325 mg PO DAILY Advil 200 mg Tablet 200 mg PO Q6H PRN (Reason: Pain) Coding Level of Care Code ED Customs Consultant for Jessica Florez
--- NOTE | 2022-03-16 11:35 | ED_ITS ---
HPI - General Adult General: Chief complaint: General Medical Stated complaint: rash on face, sick Time Seen by Provider: 03/16/22 09:43 Source: patient Mode of arrival: ambulatory Limitations: no limitations History of Present Illness: Patient is a 31-year-old female who presents to ED today with a main complaint that she feels like her face is swollen and has noticed some facial redness/flushing over the past 2 to 3 days. Patient states she has had recurrent strep pharyngitis over the past few months. She recently finished Augmentin approximately a week ago. She is not complaining of a sore t hroat currently. She feels like her ears are full/muffled. Onset (ago): day(s) Location: face Severity: mild Relieving factors: none Exacerbating factors: none Associated symptoms: Reports rash (face); Deny chest pain, confusion, dyspnea, headache(s), malaise, nausea, palpitations or vomiting Treatments prior to arrival: none Review of Systems Const: Denies: fever(s), chills, body aches, fatigue or malaise Eyes: Denies: change in vision, blurry vision, photophobia, floaters or seeing flashes ENMT: Reports: ear or mastoid pain and other (facial swelling, facial rash); Denies: throat pain, odynophagia, nasal discharge, nasal congestion, post nasal drip or sinus pain Card: Denies: chest pain, palpitations, edema or lightheadedness Resp: Denies: dyspnea GI: Denies: abdominal pain, nausea, vomiting or diarrhea : Denies: flank pain, dysuria or hematuria Musc: Denies: neck pain, back pain, extremity pain or joint pain Skin/Breast: Reports: rash (face) Neuro: Denies: headache(s), numbness in extremities, weakness in extremities, sensory changes, difficulty walking, dizziness or confusion PFSH ED PFSH: Medical History Anxiety Since at least 2011. Has been on and off medication in the past. Currently asymptomatic. Does not see anyone for this. GERD (gastroesophageal reflux disease) Symptoms since at least 2013 and worse with every . Has not had an endoscopy done. Surgical History H/O dilation and curettage x 2 ---2012 after miscarriage. Done by Dr. Milligan at [facility] [place]. ----06/29/2017 for retained placenta after vaginal delivery of a missed . Done by Dr. Matthews at [facility] [place]. Family History Father Hypertension Mother Hypertension Denies family history of Colon cancer Ovarian cancer Diabetes Heart disease Hyperlipidemia Breast cancer Uterine cancer Thyroid condition Stroke Social History Smoking and tobacco status: never smoked Alcohol intake: never Additional social history: - Physical Exam Const: COMMON NORMALS: no acute distress, patient oriented x3, no limitations and alert GENERAL APPEARANCE: cooperative NUTRITIONAL APPEARANCE: obese ORIENTATION/CONSCIOUSNESS: Yes awake, Yes oriented to person, Yes oriented to place and Yes oriented to time HENMT: COMMON NORMALS: normocephalic, atraumatic, hearing grossly normal bilaterally, external ears normal, EAC's normal, Normal external nose present, Normal nasal mucous membranes and turbinates present, moist oral mucous membranes, oropharynx normal, dentition normal and gingiva normal HEAD & SCALP: normal to inspection, normocephalic and atraumatic FACE & SINUS: normal facial exam and other (I do not appreciate swelling; mild erythema to cheeks/forehead) NOSE: Normal external nose present and Normal nasal mucous membranes and turbinates present EXTERNAL EAR: Yes external ears normal, Yes mastoids normal and Yes no periauricular adenopathy EXTERNAL AUDITORY CANAL: EAC's normal TYMPANIC MEMBRANE: TM abnormal (left serous otitis; chronic bilateral TM scarring) MOUTH: Normal oral and palatal mucosa present, lip normal and tongue normal THROAT: posterior oropharynx normal, tonsils normal and uvula midline Eye: GENERAL EYE: appearance normal, both eyes and all related structures Neck/C-Spine: COMMON NORMALS: full ROM and no lymphadenopathy GENERAL: Yes normal visual inspection, No anterior neck swelling, No lymphadenopathy and No submandibular swelling CERVICAL SPINE: Yes cervical ROM normal Resp: COMMON NORMALS: normal respiratory effort Extremity: COMMON NORMALS: normal to inspection GENERAL: Yes normal exam except as noted Neuro: JOHN PAUL COMA SCALE: document GCS findings [place] coma scale eye opening: Spontaneous [place] coma scale verbal response: Orientated [place] coma scale motor response: Obey commands John Paul coma scale total score: 15 COMMON NORMALS: patient oriented x3, CN's II-XII intact bilaterally, moves all extremities, no focal motor deficits and no sensory deficits noted SENSORIUM/ORIENTATION: Yes alert, Yes oriented to person, Yes oriented to place and Yes oriented to time Course Vital Signs: Vital signs: Vital Signs Temperature 97.8 F 03/16/22 10:00 Pulse Rate 87 03/16/22 12:08 Respiratory Rate 17 03/16/22 12:08 Blood Pressure 148/97 03/16/22 10:00 Pulse Oximetry 97 03/16/22 12:08 Oxygen Delivery Me thod 03/16/22 10:00 MDM - General Adult Medical Decision Making Patient appears in no acute distress. Recommend she follow-up with her primary care provider. Patient states she does have an appointment scheduled in approximately 2 weeks. Return to ED precautions given. Discharge Plan Discharge Patient Disposition: Home Clinical Impression: Facial flushing Condition: Stable Prescriptions: No Action acetaminophen [Tylenol] 325 mg capsule 325 mg PO QID PRN (Reason: Pain) amoxicillin-pot clavulanate 875-125 mg tablet 1 tab PO Q12H 10 Days Qty: 20 0RF mupirocin 2 % ointment 1 applic topical BID Qty: 22 1RF Rx Instructions: in both nares for 3 weeks ibuprofen 600 mg tablet 600 mg PO Q8H PRN (Reason: pain) Qty: 30 0RF amoxicillin 875 mg tablet 875 mg PO BID 10 Days Qty: 20 0RF cyanocobalamin (vitamin B-12) [Vitamin B-12] 1,000 mcg Tablet 1,000 mcg PO DAILY iron 325 mg (65 mg iron) Tablet 325 mg PO DAILY Advil 200 mg Tablet 200 mg PO Q6H PRN (Reason: Pain) Discharge Orders: Discharge ED (Routine); Ordered 03/16/22 Ordered By: Krysta Canales Coding Level of Care Code ED Data Control Assistant for Jessica Florez
[2022-03-16 12:08] VITALS: PULSE 87; RESP 17; O2SAT 97
== END 2022-03-16 12:09 | disposition home or self-care (01) ==
PROVIDERS: Emergency Provider Physician Assistant
DX: R23.2 Flushing (principal)
CPT/HCPCS: 99282

== ENCOUNTER → 2022-04-14 08:17 | Outpatient (BNVA) | payer MEDICAID, SELFPAY | PROVIDERS: PCP Family Medicine; Visit Provider Family Medicine | DX: Z13.6 Encounter for screening for cardiovascular disorders (principal); Z86.2 Personal history of diseases of the blood and blood-forming organs and certain disorders involving the immune mechanism; R00.2 Palpitations | CPT/HCPCS: 80053; 80061; 82533; 82728; 83036; 83550; 84443; 85025 ==

== ENCOUNTER → 2022-07-13 09:03 | Outpatient (BNVA) | payer MEDICAID, SELFPAY | PROVIDERS: PCP Family Medicine; Visit Provider Family Medicine | DX: D50.9 Iron deficiency anemia, unspecified (principal) | CPT/HCPCS: 82728; 83550; 85025 ==

== ENCOUNTER → 2023-03-29 10:02 | Outpatient (BNVA) | payer MEDICAID, SELFPAY | PROVIDERS: PCP Family Medicine; Visit Provider Internal Medicine Rheumatology | DX: Z79.899 Other long term (current) drug therapy (principal); M19.90 Unspecified osteoarthritis, unspecified site; L71.9 Rosacea, unspecified; M25.541 Pain in joints of right hand; M25.542 Pain in joints of left hand | CPT/HCPCS: 36415; 80076; 82565; 84439; 84443; 85025; 85651; 86140 ==

== ENCOUNTER 2023-09-12 09:15 | Emergency (ER) | payer SELFPAY ==
[2023-09-12 09:25] VITALS: BP 170/116; PULSE 119; RESP 18; TEMP 36.6; O2SAT 95; BMI 36.9
--- NOTE | 2023-09-12 09:26 | ECG_ITS ---
[facility] Test Date: 2023-09-12 Pat Name: Terri Hunt Department: Room: Gender: Female Hand Ironer: : 1990 Requested By: Krysta Canales Order Number: [id number] MD: Anthony Brito M.D. Measurements Intervals [place] Rate: 117 P: 57 NM: 147 QRS: 66 QRSD: 81 T: 64 QT: 335 QTc: 468 Interpretive Statements SINUS TACHYCARDIA POSSIBLE LEFT ATRIAL ENLARGEMENT [-0.1mV P-WAVE IN V1/V2] POSSIBLE LATERAL MYOCARDIAL INFARCTION , PROBABLY OLD [30 ms Q WAVE IN I/aVL/V5/V6] No previous ECG available for comparison Electronically Signed On 09-12-2023 9:46:44 CDT by Anthony Brito M.D. [id number]
--- NOTE | 2023-09-12 09:30 | XRR_ITS ---
PROCEDURE INFORMATION: Exam: XR Chest Exam date and time: 09/12/2023 9:42 AM Age: 33 years old Clinical indication: Pain; Angina pectoris; Additional info: Chest pain TECHNIQUE: Imaging protocol: Radiologic exam of the chest. Views: 1 view. COMPARISON: CT neck w con* [id number] 11/11/2021 12:06 PM FINDINGS: Lungs: Unremarkable. No consolidation. Pleural spaces: Unremarkable. No pleural effusion. No pneumothorax. Heart/Mediastinum: Unremarkable. No cardiomegaly. Bones/joints: Unremarkable. XR/XR chest 1V portable [id number] IMPRESSION: No acute findings.
[2023-09-12 10:26] LABS: Basophils % 0.4 %; Eosinophils # 0.1 10^3/uL (0.0-0.8); Eosinophils % 1.4 %; Hematocrit 41.8 % (36-47); Lymphocytes # 2.9 10^3/uL (0.8-4.8); Lymphocytes % 32.4 %; Mean Corpuscular HGB Conc 31.6 g/dL (30-55); Mean Corpuscular Hemoglobin 26.2 pg (27-33); Mean Corpuscular Volume 82.9 fl (85-98); Mean Platelet Volume 11.2 fL (7.4-10.4); Monocytes # 0.5 10^3/uL (0.2-0.9); Monocytes % 5.4 %; Neutrophils # 5.46 10^3/uL (1.8-7.7); Neutrophils % 60.2 %; Nucleated Red Blood Cells % 0 %; Platelet Count 287 10^3/cmm (157-399); Red Blood Count 5.04 10^6/uL (3.85-5.65); Red Cell Distribution Width 13.2 % (12.1-15.1); White Blood Count 9.08 10^3/uL (3.29-11.43)
[2023-09-12 10:28] VITALS: BP 174/123; PULSE 109; RESP 18; O2SAT 98
[2023-09-12 10:33] VITALS: BP 174/123; PULSE 104; RESP 18; O2SAT 94
[2023-09-12 10:46] LABS: HCG, Serum Qual Negative (Negative)
[2023-09-12 10:54] LABS: Alanine Aminotransferase 22 U/L (0-33); Albumin Level 4.4 g/dL (3.5-5.2); Alkaline Phosphatase 64 U/L (35-105); Anion Gap 19.9 (5-19); Aspartate Amino Transferase 18 U/L (0-32); Blood Urea Nitrogen 11 mg/dL (6-20); Calcium 9.3 mg/dL (8.5-10.5); Carbon Dioxide 22 mmol/L (22-29); Chloride 100 mmol/L (98-107); Creatinine Clr Calc Pharmacy 213.6277; Globulin 3.3 g/dL (1.3-4.6); Glomerular Filtration Rate 143.9 mL/min (90-130); Glucose 104 mg/dL (65-115); Magnesium 1.9 mg/dL (1.7-2.3); Osmolality Calculated 286 mOsm/kg (285-295); Potassium 3.9 mmol/L (3.5-5.1); Sodium 138 mmol/L (136-145); Thyroid Stimulating Hormone 3.08 uIU/mL (0.27-4.20); Total Bilirubin 0.3 mg/dL (0.15-1.2); Total Protein 7.7 g/dL (6.6-8.7)
[2023-09-12 11:18] VITALS: BP 180/125; PULSE 110; RESP 20; O2SAT 100
--- NOTE | 2023-09-12 11:31 | W.ED.GENADLT ---
HPI - General Adult General: Chief complaint: Chest Pain Stated complaint: heart palpitations, arm and leg cramp Time Seen by Provider: 09/12/23 10:22 Source: patient Mode of arrival: ambulatory Limitations: no limitations History of Present Illness: Patient is a 33-year-old female presents to ED today with a complaint of palpitations, anxiety, chest heaviness, some generalized cramping-like sensations to her arms and legs. States yesterday she had a mild headache but this is subsided today. Upon my initial examination patient is extremely anxious appearing. She states she has a longstanding history of anxiety. She states she recently got put on a new anxiety medication but has anxiety about taking anxiety medication thus has not started it. She is hypertensive upon arrival. She admittedly does not take her blood pressure at home. She is tachycardic which she states is normal for her. Onset (ago): day(s) Severity: moderate Relieving factors: none Exacerbating factors: other (anxiety) Associated symptoms: Reports chest pain and palpitations; Deny dyspnea, headache(s), malaise, nausea, rash, syncope or vomiting Treatments prior to arrival: none Review of Systems Const: Denies: fever(s), chills, body aches, fatigue or malaise Eyes: Denies: change in vision, blurry vision or photophobia Card: Reports: chest pain and palpitations; Denies: irregular heart rhythm, edema, swelling of feet/ankles, lightheadedness, syncope, pre-syncope, dyspnea on exertion, orthopnea, leg pain with exertion or acrocyanosis Resp: Denies: dyspnea GI: Denies: abdominal pain, nausea, vomiting or diarrhea : Denies: flank pain or dysuria Musc: Reports: muscle cramps; Denies: neck pain, back pain, extremity pain, extremity swelling or joint pain Skin/Breast: Denies: rash Neuro: Denies: headache(s), numbness in extremities, weakness in extremities, sensory changes or dizziness PFS ED PFSH: Medical History Joint pain Rosacea History of anemia GERD (gastroesophageal reflux disease) Symptoms since at least 2013 and worse with every . Has not had an endoscopy done. Anxiety Since at least 2011. Has been on and off medication in the past. Currently asymptomatic. Does not see anyone for this. Surgical History H/O dilation and curettage x 2 ---2011 after miscarriage. Done by Dr. Milligan at [facility] [place]. ----06/29/2017 for retained placenta after vaginal delivery of a missed . Done by Dr. Matthews at [facility] [place]. Family History Father Hypertension Mother Hypertension Other Cancer Diabetes Fibromyalgia Psoriasis Psoriatic arthritis Rheumatoid arthritis Denies family history of Lupus (systemic lupus erythematosus) Colon cancer Ovarian cancer CAD (coronary artery disease) Heart disease Hyperlipidemia Chronic kidney disease (CKD) Breast cancer Uterine cancer Thyroid disease Stroke Social History Smoking and tobacco/nicotine status: never used tobacco/nicotine Alcohol intake: never Substance/Drug Use: never Additional social history: - Physical Exam Const: COMMON NORMALS: patient oriented x3, no limitations, alert and well nourished GENERAL APPEARANCE: cooperative and anxious NUTRITIONAL APPEARANCE: obese ORIENTATION/CONSCIOUSNESS: Yes awake, Yes oriented to person, Yes oriented to place and Yes oriented to time Neck/C-Spine: COMMON NORMALS: Thyroid normal GENERAL: No anterior neck swelling and No submandibular swelling THYROID: Thyroid normal Chest: COMMONS NORMALS: normal inspection of the chest and normal palpation of entire chest wall Resp: COMMON NORMALS: normal respiratory effort and clear to auscultation bilaterally AUSCULTATION: clear to auscultation bilaterally Cardio: COMMON NORMALS: regular rhythm RATE: tachycardic RHYTHM: regular rhythm GI: COMMON NORMALS: Normal to inspection, nondistended, normoactive bowel sounds present, Soft to palpation and non-tender PALPATION: Yes Soft to palpation Extremity: GENERAL: Yes normal exam except as noted Neuro: JOHN PAUL COMA SCALE: document GCS findings Parker coma scale eye opening: Spontaneous Parker coma scale verbal response: Orientated Parker coma scale motor response: Obey commands John Paul coma scale total score: 15 COMMON NORMALS: patient oriented x3, CN's II-XII intact bilaterally, moves all extremities, no focal motor deficits, no sensory deficits noted and gait normal SENSORIUM/ORIENTATION: Yes alert, Yes oriented to person, Yes oriented to place and Yes oriented to time Skin: COMMON NORMALS: no rashes or lesions noted GENERAL SKIN EXAM: no rashes or lesions noted Course Vital Signs: Vital signs: Vital Signs Temperature 97.9 F 09/12/23 09:25 Pulse Rate 98 09/12/23 12:23 Respiratory Rate 18 09/12/23 12:23 Blood Pressure 167/112 09/12/23 12:23 Pulse Oximetry 100 09/12/23 12:23 Oxygen Delivery Me thod Room Air 09/12/23 12:23 MDM - General Adult Medical Decision Making Patient feeling much better after antihypertensive and anxiety medications given here. On re-examination her systolic is now in the 130s and heart rate is below 100. She states she feels much improved and is ready to go home. Her evaluation here overall is unremarkable. Recommend she keep a blood pressure log at home and I will start her on propranolol which should help with her anxiety/blood pressure. She can follow-up with primary care and they can tailor this based on blood pressure log. Return to ED precautions given. Recommend starting her anxiety medication that she was given as there certainly is a component of this to her symptoms. Medical Records I reviewed the patient's medical records. Lab Data I reviewed the patient's lab results. 09/12/23 10:05 09/12/23 10:05 Radiology Impressions Chest X-Ray 09/12/23 09:30 IMPRESSION: No acute findings. Laboratory Results WBC 9.08 10^3/uL (3.29-11.43) 09/12/23 10:05 RBC 5.04 10^6/uL (3.85-5.65) 09/12/23 10:05 Hgb 13.20 g/dL (11.27-16.99) 09/12/23 10:05 Hct 41.8 % (36-47) 09/12/23 10:05 MCV 82.9 fl (85-98) L 09/12/23 10:05 MCH 26.2 pg (27-33) L 09/12/23 10:05 MCHC 31.6 g/dL (30-55) 09/12/23 10:05 RDW 13.2 % (12.1-15.1) 09/12/23 10:05 Plt Count 287 10^3/cmm (157-399) 09/12/23 10:05 MPV 11.2 fL (7.4-10.4) H 09/12/23 10:05 Neut % (Auto) 60.2 % 09/12/23 10:05 Lymph % (Auto) 32.4 % 09/12/23 10:05 [place] % (Auto) 5.4 % 09/12/23 10:05 Eos % (Auto) 1.4 % 09/12/23 10:05 Baso % (Auto) 0.4 % 09/12/23 10:05 Neut # (Auto) 5.46 10^3/uL (1.8-7.7) 09/12/23 10:05 Lymph # (Auto) 2.9 10^3/uL (0.8-4.8) 09/12/23 10:05 [place] # (Auto) 0.5 10^3/uL (0.2-0.9) 09/12/23 10:05 Eos # (Auto) 0.1 10^3/uL (0.0-0.8) 09/12/23 10:05 Baso # (Auto) 0.0 10^3/uL (0.0-0.1) 09/12/23 10:05 Nucleated RBC % (auto) 0 % 09/12/23 10:05 Nucleated RBCs # 0.0 /100WBC 09/12/23 10:05 Sodium 138 mmol/L (136-145) 09/12/23 10:05 Potassium 3.9 mmol/L (3.5-5.1) 09/12/23 10:05 Chloride 100 mmol/L (98-107) 09/12/23 10:05 Carbon Dioxide 22 mmol/L (22-29) 09/12/23 10:05 Anion Gap 19.9 (5-19) H 09/12/23 10:05 BUN 11 mg/dL (6-20) 09/12/23 10:05 Creatinine 0.5 mg/dL (0.5-0.9) 09/12/23 10:05 GFR Calculation 143.9 mL/min (90-130) H 09/12/23 10:05 Glucose 104 mg/dL (65-115) 09/12/23 10:05 Calculated Osmolality 286 mOsm/kg (285-295) 09/12/23 10:05 Calcium 9.3 mg/dL (8.5-10.5) 09/12/23 10:05 Magnesium 1.9 mg/dL (1.7-2.3) 09/12/23 10:05 Total Bilirubin 0.3 mg/dL (0.15-1.2) 09/12/23 10:05 AST 18 U/L (0-32) 09/12/23 10:05 ALT 22 U/L (0-33) 09/12/23 10:05 Alkaline Phosphatase 64 U/L (35-105) 09/12/23 10:05 Troponin T Baseline < 6 ng/L (0-10) 09/12/23 10:05 Total Protein 7.7 g/dL (6.6-8.7) 09/12/23 10:05 Albumin 4.4 g/dL (3.5-5.2) 09/12/23 10:05 Globulin 3.3 g/dL (1.3-4.6) 09/12/23 10:05 TSH 3.08 uIU/mL (0.27-4.20) 09/12/23 10:05 HCG, Qual Negative (Negative) 09/12/23 10:05 All radiology interpretation(s) finalized by discharge Discharge Plan Discharge Patient Disposition: Home Clinical Impression: Anxiety, Hypertension Condition: Stable Prescriptions: New propranolol 20 mg tablet 20 mg PO BID Qty: 60 0RF No Action acetaminophen 500 mg capsule 500 mg PO Q6H PRN (Reason: Pain) paroxetine HCl 20 mg tablet 20 mg PO DAILY hydroxyzine HCl 25 mg tablet 25 mg PO TID PRN (Reason: Panic Attack(S)) Tums 500 500 mg calcium (1,250 mg) Tablet,Chewable 500 mg PO TID PRN (Reason: Indigestion) Discharge Orders: Discharge ED (Routine); Ordered 09/12/23 Ordered By: Krysta Canales Referrals: Delano Swan MD [Primary Care Provider] - Activity Restrictions/Additional Instructions: As we discussed I would like you to keep a blood pressure log (measured twice daily) over the next 2 weeks and follow-up with primary care so they can adjust blood pressure medications based on this. Coding Level of Care Code ED Custom Studio Coordinator for Jessica Florez
--- NOTE | 2023-09-12 11:46 | ECG_ITS ---
[facility] Test Date: 2023-09-12 Pat Name: Terri Hunt Department: Room: Gender: Female Inspector Tim[employer]: : 1990 Requested By: Krysta Canales Order Number: [id number] Dawn MD: Anthony Brito M.D. Measurements Intervals [place] Rate: 117 P: 58 LA: 150 QRS: 68 QRSD: 84 T: 53 QT: 340 QTc: 476 Interpretive Statements SINUS TACHYCARDIA POSSIBLE LEFT ATRIAL ENLARGEMENT [-0.1mV P-WAVE IN V1/V2] NONSPECIFIC ST & T-WAVE ABNORMALITY ABNORMAL RHYTHM ECG Compared to ECG 09/12/2023 09:18:47 T-wave abnormality now present Myocardial infarct finding no longer present Electronically Signed On 09-12-2023 14:21:00 CDT by Anthony Brito M.D. [id number]
[2023-09-12 12:02] LABS: Troponin(5th) Baseline < 6 ng/L (0-10)
[2023-09-12] MEDS: LORazepam 2 mg/mL INJ 1 mL 1 MG IVP (12:11)
[2023-09-12] MEDS: metoprolol tartrate 1 mg/1 mL SDV 5 mL 5 MG IVP (12:14)
[2023-09-12] MEDS: hyDRALAzine 20 mg/mL INJ 1 mL 10 MG IVP (12:20)
[2023-09-12 12:23] VITALS: BP 167/112; PULSE 98; RESP 18; O2SAT 100
[2023-09-12 13:57] VITALS: BP 154/110; PULSE 104; RESP 20; O2SAT 97
== END 2023-09-12 13:58 | disposition home or self-care (01) ==
PROVIDERS: Emergency Provider Physician Assistant; PCP Family Medicine
DX: F41.9 Anxiety disorder, unspecified (principal); I10 Essential (primary) hypertension
CPT/HCPCS: 36415; 71045; 80053; 83735; 84443; 84484; 84703; 85025; 93005; 96374; 96375; 99285; J0360; J2060; J3490

== ENCOUNTER 2024-04-22 19:46 | Emergency (ER) | payer SELFPAY ==
[2024-04-22 20:07] VITALS: BP 152/103; PULSE 140; RESP 17; TEMP 36.6; O2SAT 98; BMI 37.5
[2024-04-22 21:00] LABS: Influenza A POSITIVE (Negative); Influenza B NEGATIVE (Negative); Respiratory Syncytial Virus Ce NEGATIVE (Negative); SARS-CoV-2 PCR NEGATIVE (Negative)
[2024-04-22 21:41] VITALS: BP 142/99; PULSE 107; O2SAT 100
--- NOTE | 2024-04-22 21:54 | W.ED.URI ---
HPI - URI/Sore Throat General: Chief Complaint: Upper Respiratory Infection Stated Complaint: n/v x 3 days Time Seen by Provider: 04/22/24 21:34 Source: patient Mode of arrival: ambulatory Limitations: no limitations History of Present Illness: 33-year-old female presents to the ER for increased heart rate. Patient states she has been having body aches, hot/cold sweats, nausea for the past 4 days with a temperature of 100 ?F. Patient has been taking Tylenol which has helped with her fever and bod yaches symptoms. Patient reports decreased appetite. Patient states all 5 of her kids have influenza A. Patient denies chest pain, palpitations, shortness of breath, wheezing, abdominal pain. Patient states she went to the urgent care yesterday to be tested for streptococcal pharyngitis and it was negative, however the patient is prone to getting strep infections anytime she is sick so she is taking doxycycline for management. Patient has history of tachycardia and hypertension. Has been told in the past this is related to anxiety. Has hydroxyzine but she does not take. She does take metoprolol 25 Mg twice daily. No other complaints at this time. MD elicited complaint: fever, sore throat and nasal congestion Onset (ago): day(s) Severity: moderate Description of mucous: clear Able to tolerate fluids by mouth: Yes Exacerbating factors: nothing Relieving factors: nothing and other (Tylenol) Context: sick contacts (Her kids tested positive for Flu A) Associated symptoms: Reports chills, diarrhea, fever(s), nasal congestion and nausea; Deny abdominal pain, change in voice, chest pain, congestion, headache(s), rash, sinus pain or vomiting Treatments prior to arrival: none Related Data Home Medications ?Medication ?Instructions ?Recorded ?Confirmed acetaminophen 500 mg capsule 500 mg PO Q6H PRN Pain 03/29/23 09/12/23 calcium carbonate 500 mg PO TID PRN Indigestion 09/12/23 09/12/23 hydroxyzine HCl 25 mg tablet 25 mg PO TID PRN Panic Attack(S) 09/12/23 09/12/23 paroxetine HCl 20 mg tablet 20 mg PO DAILY 09/12/23 09/12/23 Previous Rx's ?Medication ?Instructions ?Recorded propranolol 20 mg tablet 20 mg PO BID #60 tabs 07/15/24 Allergies Allergy/AdvReac Type Severity Reaction Status Date / Time No Known Allergies Allergy Verified 04/22/24 20:11 Review of Systems Const: Reports: fever(s), chills and body aches ENMT: Reports: throat pain and nasal congestion; Denies: nasal discharge or sinus pain Card: Reports: other (elevated HR); Denies: chest pain, palpitations, edema, swelling of feet/ankles, lightheadedness, syncope, pre-syncope, dyspnea on exertion, orthopnea or acrocyanosis Resp: Denies: dyspnea GI: Reports: nausea and diarrhea; Denies: abdominal pain or vomiting Skin/Breast: Denies: rash Neuro: Denies: headache(s) or dizziness Psych: Reports: anxiety PFSH ED PFSH: Medical History Joint pain Rosacea History of anemia GERD (gastroesophageal reflux disease) Symptoms since at least 2013 and worse with every . Has not had an endoscopy done. Anxiety Since at least 2011. Has been on and off medication in the past. Currently asymptomatic. Does not see anyone for this. Surgical History H/O dilation and curettage x 2 ---2012 after miscarriage. Done [place] Dr. Milligan at [facility] [place]. ----06/29/2017 for retained placenta after vaginal delivery of a missed . Done by Dr. Matthews at [facility] [place]. Family History Father Hypertension Mother Hypertension Other Cancer Diabetes Fibromyalgia Psoriasis Psoriatic arthritis Rheumatoid arthritis Denies family history of Lupus (systemic lupus erythematosus) Colon cancer Ovarian cancer CAD (coronary artery disease) Heart disease Hyperlipidemia Chronic kidney disease (CKD) Breast cancer Uterine cancer Thyroid disease Stroke Social History Smoking and tobacco/nicotine status: never used tobacco/nicotine Alcohol intake: never Substance/Drug Use: never Additional social history: - Physical Exam Const: COMMON NORMALS: no acute distress, patient oriented x3, no limitations and well nourished GENERAL APPEARANCE: cooperative ORIENTATION/CONSCIOUSNESS: Yes awake, Yes oriented to person, Yes oriented to place and Yes oriented to time Resp: COMMON NORMALS: normal respiratory effort and clear to auscultation bilaterally AUSCULTATION: clear to auscultation bilaterally, no crackles, no rales and no rhonchi Cardio: COMMON NORMALS: regular rhythm RATE: tachycardic RHYTHM: regular rhythm Extremity: COMMON NORMALS: capillary refill normal, no clubbing, cyanosis or edema, no calf tenderness and no pedal edema GENERAL: Yes normal exam except as noted Neuro: COMMON NORMALS: patient oriented x3, moves all extremities, no focal motor deficits and no sensory deficits noted SENSORIUM/ORIENTATION: Yes oriented to person, Yes oriented to place and Yes oriented to time Course Vital Signs: Vital signs: Vital Signs Temperature 98 F 04/22/24 20:07 Pulse Rate 140 H 04/22/24 20:07 Respiratory Rate 17 04/22/24 20:07 Blood Pressure 152/103 04/22/24 20:07 Pulse Oximetry 98 04/22/24 20:07 Oxygen Delivery Me thod Room Air 04/22/24 20:07 MDM - URI/Sore Throat Medical Decision Making Patient is positive for influenza A. She arrives tachycardic and hypertensive. I have seen patient previously for similar symptoms. Looking at previous documentation she has a longstanding history of tachycardia. After 1 mg IV Ativan her high blood pressure and tachycardia have completely resolved. I suspect symptoms are due to anxiety. At this time I would have a low suspicion for pulmonary emboli for the cause of her tachycardia especially given her longstanding history of this. EKG is nonconcerning. Patient will be allowed discharge. She will follow-up with primary care for further evaluation. Return to ED precautions discussed. Medical Records I reviewed the patient's medical records. Lab Data I reviewed the patient's lab results. Laboratory Results Influenza A (PCR) Positive (Negative) 04/22/24 20:12 Influenza Type B (PCR) Negative (Negative) 04/22/24 20:12 RSV (PCR) Negative (Negative) 04/22/24 20:12 SARS-CoV-2 (PCR) Negative (Negative) 04/22/24 20:12 No radiology studies performed this visit Discharge Plan Discharge Patient Disposition: Home Clinical Impression: Influenza A, Tachycardia Condition: Stable Prescriptions: No Action acetaminophen 500 mg capsule 500 mg PO Q6H PRN (Reason: Pain) paroxetine HCl 20 mg tablet 20 mg PO DAILY hydroxyzine HCl 25 mg tablet 25 mg PO TID PRN (Reason: Panic Attack(S)) Tums 500 500 mg calcium (1,250 mg) Tablet,Chewable 500 mg PO TID PRN (Reason: Indigestion) propranolol 20 mg tablet 20 mg PO BID Qty: 60 0RF Discharge Orders: Discharge ED (Routine); Ordered 04/22/24 Ordered By: Krysta Canales Referrals: Delano Swan MD [Primary Care Provider] - Activity Restrictions/Additional Instructions: As we discussed you are positive for influenza A. At time of discharge her blood pressure and heart rate are normal. We discussed taking your hydroxyzine as needed to help with your anxiety. You can continue taking your metoprolol twice daily as prescribed. Do not take this medication for blood pressure lower than 100/70. Print Language: Sinhala Coding Level of Care Code ED Experimental Aircraft Mechanic for Jessica Florez
[2024-04-22 22:00] VITALS: BP 133/102; PULSE 104; O2SAT 99
[2024-04-22] MEDS: LORazepam 2 mg/mL INJ 1 mL 1 MG IVP (22:21)
[2024-04-22] MEDS: sodium chloride 0.9% 1,000 ML 999 ML IV (22:22)
[2024-04-22 22:45] VITALS: BP 127/101; PULSE 100; O2SAT 97
--- NOTE | 2024-04-22 23:09 | ECG_ITS ---
[facility] Test Date: 2024-04-22 Pat Name: Terri Hunt Department: Room: Gender: Female Internship: : 1990 Requested By: Krysta Canales Order Number: [id number] López MD: LAVERNE ALVAREZ Measurements Intervals [place] Rate: 97 P: 50 MD: 158 QRS: 42 QRSD: 82 T: 43 QT: 339 QTc: 431 Interpretive Statements SINUS RHYTHM Compared to ECG 09/12/2023 11:46:19 Sinus tachycardia no longer present T-wave abnormality no longer present Electronically Signed On 04-24-2024 23:48:43 RN NEUROLOGY by LAVERNE ALVAREZ [email or web address] [id number]
[2024-04-22 23:15] VITALS: BP 136/108; PULSE 98; O2SAT 100
[2024-04-22 23:54] VITALS: BP 122/101; PULSE 100; O2SAT 99
== END 2024-04-22 23:50 | disposition home or self-care (01) ==
PROVIDERS: Emergency Medicine; Emergency Provider Physician Assistant; PCP Family Medicine
DX: J10.1 Influenza due to other identified influenza virus with other respiratory manifestations (principal); R00.0 Tachycardia, unspecified; Z11.52 Encounter for screening for COVID-19
CPT/HCPCS: 87637; 93005; 96361; 96374; 99284; J2060; J7030